=== PATIENT | female | born 1970 | race Caucasian/White ===

== ENCOUNTER 2019-02-23 11:08 | Emergency (ER) | payer BC, MEDICAID ==
[~2019-02-23] VITALS: Ht 175.3 cm; Wt 93.6 kg
[2019-02-23] MEDS ORDERED: BUSP5TAB81 PO (11:38)
[2019-02-23] MEDS ORDERED: ZEGE40CA3 PO (11:38)
[2019-02-23] MEDS ORDERED: WELLTAB40 PO (11:38)
[2019-02-23 13:32] LABS: BASO % 0.3 % (0.0-1.0); EOS # 0.1 10^3/uL (0.0-0.5); EOS % 1.3 % (0.0-3.0); HEMATOCRIT 43.8 % (36.0-47.0); HEMOGLOBIN 14.5 g/dl (12.0-15.5); LYMPH # 2.2 10^3/uL (1.5-5.0); LYMPH % 35.9 % (24.0-44.0); MEAN CORPUSCULAR HEMOGLOBIN 30.6 pg (27.0-33.0); MEAN CORPUSCULAR HGB CONC 33.1 g/dl (32.0-36.5); MEAN CORPUSCULAR VOLUME 92.4 fl (80.0-96.0); MONO # 0.5 10^3/uL (0.0-0.8); MONO % 8.1 % (0.0-5.0); NEUTROPHILS # 3.3 10^3/uL (1.5-8.5); NEUTROPHILS % 54.1 % (36.0-66.0); PLATELET COUNT, AUTOMATED 375 10^3/uL (150-450); RED BLOOD COUNT 4.74 10^6/uL (4.00-5.40); WHITE BLOOD COUNT 6.1 10^3/uL (4.0-10.0)
[2019-02-23 13:51] LABS: BLOOD UREA NITROGEN 12 MG/DL (7-18); CALCIUM LEVEL 9.4 MG/DL (8.5-10.1); CARBON DIOXIDE LEVEL 26 MEQ/L (21-32); CHLORIDE LEVEL 106 MEQ/L (98-107); CREATININE FOR GFR 0.62 MG/DL (0.55-1.30); GLOMERULAR FILTRATION RATE > 60.0 (>58); GLUCOSE, FASTING 88 MG/DL (70-100); POTASSIUM SERUM 3.7 MEQ/L (3.5-5.1); SODIUM LEVEL 138 MEQ/L (136-145)
--- NOTE | 2019-02-23 13:59 | REP ---
Four views bilateral humeri: 02/23/2019. Indication: Arm pain following trauma. Comparison: None. Findings: There is no evidence of acute fracture, subluxation or dislocation. The left antecubital IV insertion is noted. Impression: No acute fracture. Electronically Signed by Umang Nelson DO 02/23/2019 01:51 P
[2019-02-23 14:02] VITALS: BP 111/75
[2019-02-23] MEDS ORDERED: ISOVUE-370 76% 100ML VIAL (Q9967) As Ordered ONE (14:02)
--- NOTE | 2019-02-23 14:35 | REP ---
CT brain: 02/23/2019. Indication: Head trauma. Comparison: None. Technique: Unenhanced axial CT images of the brain were obtained from skull base to vertex. Findings: There is no acute intracranial hemorrhage, acute cortical infarction, mass effect, hydrocephalus or acute calvarial fracture. Impression: No acute intracranial process. Electronically Signed by Umang Nelson DO 02/23/2019 02:26 P
--- NOTE | 2019-02-23 14:41 | REP ---
CT cervical spine: 02/23/2019. Indication: Cervical spine trauma. Comparison: None. Technique: Axial images of the cervical spine were obtained with coronal and sagittal reconstructions provided. Findings: There is no acute fracture, subluxation or dislocation. Spondylitic sequelae are present most pronounced at C5/C6. Joint space narrowing is present throughout. Again most pronounced at C5/C6. There is mild reversal of the cervical lordosis. There is no evidence of hemorrhage or additional acute post traumatic sequelae within the spinal canal. Impression: No acute post traumatic osseous injuries of the cervical spine. Electronically Signed by Umang Nelson DO 02/23/2019 02:32 P
--- NOTE | 2019-02-23 14:50 | REP ---
CT neck soft tissues: 02/23/2019. Indication: Neck trauma. Choking. Comparison: None. Technique: Axial images of the neck soft tissues were obtained following the administration of 75 ml IV Isovue 370. Coronal and sagittal reconstructions were provided. Findings: The airway is patent. No acute vascular abnormalities are detected. The visualized lungs are clear without evidence of pneumothorax. No acute vascular injury is detected. The submandibular and parotid glands are unremarkable. There are small benign appearing thyroid cysts bilaterally. There is no evidence of hematoma within the soft tissues of the neck. Impression: No acute post traumatic soft tissue injuries of the neck. Electronically Signed by Umang Nelson DO 02/23/2019 02:41 P
[2019-02-23] MEDS ORDERED: IBUPROFEN 800 MG TAB PO ONE (15:15)
[2019-02-23] MEDS ORDERED: ONDANSETRON 4 MG ORAL DISINTEGRATING TAB (Q0162 PER 1MG) PO ONE (15:15)
== END 2019-02-23 15:29 | disposition home or self-care (01) ==
LOC: M ED 11:08
DX: S10.93XA Contusion of unspecified part of neck, initial encounter (principal); M54.2 Cervicalgia; M25.511 Pain in right shoulder; M25.512 Pain in left shoulder; Y04.8XXA Assault by other bodily force, initial encounter; Y92.099 Unspecified place in other non-institutional residence as the place of occurrence of the external cause; Y93.89 Activity, other specified; Y99.9 Unspecified external cause status; J45.909 Unspecified asthma, uncomplicated; F41.9 Anxiety disorder, unspecified; F32.9 Major depressive disorder, single episode, unspecified; F17.200 Nicotine dependence, unspecified, uncomplicated; Z79.899 Other long term (current) drug therapy; Z88.0 Allergy status to penicillin
CPT/HCPCS: 70450; 70491; 72125; 73060; 80048; 84702; 85025; 99283; Q0162; Q9967

== ENCOUNTER → 2020-07-08 | Outpatient (CLI) | payer BC ==
[~2020-07-08] MED LIST: BUSP5TAB81 PO; WELLTAB40 PO; ZEGE40CA3 PO
== END ==
LOC: M LABSMTC 10:21
PROVIDERS: ATTEND Anesthesiology
DX: Z01.812 Encounter for preprocedural laboratory examination (principal)

== ENCOUNTER 2020-07-13 07:26 | Day surgery (SDC) | payer BC ==
[~2020-07-13] VITALS: Ht 174 cm; Wt 92.9 kg
[~2020-07-13 07:26] MED LIST changes: +LIDOCAINE 2% 100MG/5ML SDV (FOR ANES.) As Ordered ONE; +LR 1,000 ML IV ONE; +MIDAZOLAM INJ 2MG/2ML VIAL (J2250 PER 1MG) As Ordered ONE; +ONDANSETRON 4MG/2ML VIAL As Ordered ONE; +PHENYLephrine 500MCG 5ML (100MCG/ML) SYRINGE As Ordered ONE; +ROCURONIUM BROMIDE 50 MG/5 ML VIAL As Ordered ONE; +SUGAMMADEX SODIUM 500 MG/5 ML VIAL (BRIDION) As Ordered ONE; +dexameTHASONE 4 MG/ML 1ML VIAL (J1100 PER 1MG) As Ordered ONE; +ePHEDrine SULFATE 25 MG/5 ML(5MG/ML) SYRINGE As Ordered ONE; +fentaNYL 100 MCG/2 ML INJECTION (J3010) As Ordered ONE; +propofoL 200 MG/20 ML VIAL As Ordered ONE
[2020-07-13] MEDS ORDERED: ACETAMINOPHEN 1000MG 100ML IV BTL (OFIRMEV) (J0131 PER 10MG) As Ordered ONE (09:20)
[2020-07-13] MEDS ORDERED: ONDANSETRON 4MG/2ML VIAL IV PRN (10:55)
[2020-07-13] MEDS ORDERED: oxyCODONE 5MG TAB PO PRN (10:55)
[2020-07-13] MEDS ORDERED: HYDROMORPHONE HCL 0.5 MG/ 0.5 ML SYRINGE (J1170 PER 1) IV PRN (10:55)
[2020-07-13] MEDS ORDERED: LR 1,000 ML IV SCH ×2 (10:55)
[2020-07-13] MEDS ORDERED: fentaNYL 100 MCG/2 ML INJECTION (J3010) IV PRN (10:55)
[2020-07-13 12:18] VITALS: BP 150/80
--- NOTE | 2020-07-13 13:12 | RO ---
OPERATIVE NOTE DATE OF OPERATION: 07/13/2020 PREOPERATIVE DIAGNOSIS/INDICATION FOR SURGERY: Increased genetic risk for ovarian and fallopian tube cancer. POSTOPERATIVE DIAGNOSIS: Increased genetic risk for ovarian and fallopian tube cancer. PROCEDURE: Laparoscopic bilateral salpingo-oophorectomy. She also incidentally had some Falope rings. We removed those, too. They were scarred into the tissue. SURGEON: Glenda Skinner MD LINSEED CAKE TRIMMER: None ANESTHESIA: General endotracheal anesthesia SPECIMENS: As already noted, both ovaries and tubes were removed. BRIEF DESCRIPTION OF PROCEDURE AND FINDINGS: Layne was brought to the operating room where sufficient general endotracheal anesthesia was induced and she was prepped, draped and positioned in the usual sterile fashion. A uterine manipulator was placed after the uterus was sounded to 8-1/2. The bladder was emptied but no Sandhu was placed. Attention was then turned to the abdomen where a transverse semilunar incision was made below the umbilicus. Sharp and blunt dissection were continued to the level of the rectus fascia which was transversely incised and there was a well developed posterior sheath as well and this was transversely incised. The fascia was secured with 0 Vicryl retention sutures. The peritoneum entered under direct visualization and CO2 insufflation was then begun using the Sonam cannula. After adequate insufflation, the peritoneal cavity was visualized. There were normal shiny peritoneal surfaces throughout. There were no ascites, exudate or excrescences and there was scarring from the previous Falope ring tubal ligation as noted in the pictures but no undue adhesions and the upper abdomen was normal in appearance as is pictured at the end of the case. With the patient placed in Trendelenburg, the uterus elevated with the uterine manipulator and also the patient leaned right side dependent so that bowel would roll way, we were able to isolate the infundibulopelvic ligament on the left, carefully cauterize and transect it using the Enseal dissectors through the operative port on the laparoscope. We also placed a right lower quadrant 5 mm port and used that for traction as needed. We dissected up through the mesentery of the ovary and tube, avoiding injury to the round because the patient is keeping her uterus and then we left the ovary attached on uterine side to turn our attention to the right ovary. We leveled the patient [id number] but kept her in Trendelenburg and then careful dissected the infundibulopelvic on the right as well. Both ureters were visible and peristalsing and well away from the field of dissection and the bowel, of course, was moving but with the manipulation of the Trend and the tilting as appropriate, we were able to keep it well away from the field of dissection as well. We continued the dissection on the right side and eventually freed that ovary, placing it in the anterior cul-de-sac. She had a little oozing on the uterine side of that dissection but with careful cautery, we were able to stop that ooze without disrupting the uterine vasculature. We did watch with the uterus not under pressure for a considerable length of time to confirm we had good hemostasis. We then continued the dissection on the left side, freeing that ovary and also placing it in the anterior cul-de-sac using the uterine manipulator to hold the uterus up. We had a good pocket so we could keep those secure while we switched out for the 5 mm scope on the right lower quadrant port and then placed the EndoCatch bag through the umbilicus and using two EndoCatch bags, we could take the ovaries individually with of course the attached fallopian tubes and the scarred in Falope rings. We went ahead and removed both ovaries and fallopian tube as planned and then replugged the umbilical wound so that we could once again insufflate and confirm good hemostasis on that uterus and at the other sites of dissection and another survey of the normal anatomy. The patient was then removed from Trend, the CO2 allowed to escape the abdomen and the deep wound at the fascia at the umbilicus closed with 0 Vicryl retention sutures and then the skin at both sites closed with 3-0 Vicryl in a subcuticular stitch with dry sterile dressings then applied. ESTIMATED BLOOD LOSS: For the procedure, about 3 mL. FLUID REPLACEMENT: Crystalloid. COMPLICATIONS: None. CONDITION AND DISPOSITION: Layne tolerated the procedure well and was recovering in the recovery room in good condition.
== END 2020-07-13 12:21 | disposition home or self-care (01) ==
LOC: M SDC 07:26
PROVIDERS: ATTEND Obstetrics & Gynecology
DX: Z15.02 Genetic susceptibility to malignant neoplasm of ovary (principal); N99.71 Accidental puncture and laceration of a genitourinary system organ or structure during a genitourinary system procedure; Z80.41 Family history of malignant neoplasm of ovary; F41.9 Anxiety disorder, unspecified; G43.909 Migraine, unspecified, not intractable, without status migrainosus; K21.9 Gastro-esophageal reflux disease without esophagitis; Z87.442 Personal history of urinary calculi; F43.10 Post-traumatic stress disorder, unspecified; Z88.0 Allergy status to penicillin
CPT/HCPCS: 58661; 88305; J0131; J1100; J2250; J2370; J2405; J3010

== ENCOUNTER → 2020-07-19 | Outpatient (REF) | payer BC ==
[~2020-07-19] MED LIST changes: -LIDOCAINE 2% 100MG/5ML SDV (FOR ANES.) As Ordered ONE; -LR 1,000 ML IV ONE; -MIDAZOLAM INJ 2MG/2ML VIAL (J2250 PER 1MG) As Ordered ONE; -ONDANSETRON 4MG/2ML VIAL As Ordered ONE; -PHENYLephrine 500MCG 5ML (100MCG/ML) SYRINGE As Ordered ONE; -ROCURONIUM BROMIDE 50 MG/5 ML VIAL As Ordered ONE; -SUGAMMADEX SODIUM 500 MG/5 ML VIAL (BRIDION) As Ordered ONE; -dexameTHASONE 4 MG/ML 1ML VIAL (J1100 PER 1MG) As Ordered ONE; -ePHEDrine SULFATE 25 MG/5 ML(5MG/ML) SYRINGE As Ordered ONE; -fentaNYL 100 MCG/2 ML INJECTION (J3010) As Ordered ONE; -propofoL 200 MG/20 ML VIAL As Ordered ONE
[2020-07-19 13:16] LABS: APPEARANCE, URINE CLEAR (CLEAR); BACTERIA, URINE AUTO 1+ (NEGATIVE); BILIRUBIN, URINE AUTO NEGATIVE (NEGATIVE); BLOOD, URINE BLOOD 1+ (NEGATIVE); COLOR, URINE YELLOW (YELLOW); GLUCOSE, URINE (UA) AUTO NEGATIVE (NEGATIVE); KETONE, URINE AUTO NEGATIVE (NEGATIVE); LEUKOCYTE ESTERASE, URINE AUTO NEGATIVE (NEGATIVE); NITRITE, URINE AUTO NEGATIVE (NEGATIVE); PROTEIN, URINE AUTO NEGATIVE (NEGATIVE); RBC, URINE AUTO 1 /HPF (0-3); SPECIFIC GRAVITY URINE AUTO 1.005 (1.002-1.035); SQUAMOUS EPITHELIAL CELL UR AU 0 /HPF (0-6); UROBILINOGEN, URINE AUTO 0.2 mg/dL (0.0-2.0); WBC, URINE AUTO 1 /HPF (0-3)
== END ==
LOC: M LAB REF 11:12
PROVIDERS: ATTEND Obstetrics & Gynecology
DX: N39.0 Urinary tract infection, site not specified (principal)

== ENCOUNTER → 2020-11-03 | Outpatient (REF) | payer BC ==
[2020-11-03 17:43] LABS: APPEARANCE, URINE CLEAR (CLEAR); COLOR, URINE YELLOW (YELLOW)
[2020-11-03 17:44] LABS: BACTERIA, URINE AUTO 1+ (NEGATIVE); BILIRUBIN, URINE AUTO NEGATIVE (NEGATIVE); BLOOD, URINE BLOOD NEGATIVE (NEGATIVE); GLUCOSE, URINE (UA) AUTO NEGATIVE (NEGATIVE); KETONE, URINE AUTO NEGATIVE (NEGATIVE); LEUKOCYTE ESTERASE, URINE AUTO 1+ (NEGATIVE); MUCUS, URINE SMALL (NEGATIVE); NITRITE, URINE AUTO NEGATIVE (NEGATIVE); PROTEIN, URINE AUTO NEGATIVE (NEGATIVE); RBC, URINE AUTO 1 /HPF (0-3); SPECIFIC GRAVITY URINE AUTO 1.012 (1.002-1.035); SQUAMOUS EPITHELIAL CELL UR AU 2 /HPF (0-6); UROBILINOGEN, URINE AUTO 0.2 mg/dL (0.0-2.0); WBC, URINE AUTO 17 /HPF (0-3)
== END ==
LOC: M LAB REF 16:24
PROVIDERS: ATTEND Obstetrics & Gynecology
DX: R39.15 Urgency of urination (principal)

== ENCOUNTER 2020-11-08 12:52 | Emergency (ER) | payer BC ==
[~2020-11-08] VITALS: Ht 175.3 cm; Wt 93.2 kg
[2020-11-08 15:59] LABS: BASO % 0.5 % (0.0-1.0); EOS # 0.2 10^3/uL (0.0-0.5); HEMOGLOBIN 13.9 g/dl (12.0-15.5); LYMPH # 2.8 10^3/uL (1.5-5.0); LYMPH % 48.9 % (24.0-44.0); MEAN CORPUSCULAR HEMOGLOBIN 30.5 pg (27.0-33.0); MEAN CORPUSCULAR HGB CONC 33.1 g/dl (32.0-36.5); MEAN CORPUSCULAR VOLUME 92.3 fl (80.0-96.0); MONO # 0.4 10^3/uL (0.0-0.8); MONO % 6.3 % (2.0-8.0); NEUTROPHILS # 2.3 10^3/uL (1.5-8.5); NEUTROPHILS % 40.1 % (36.0-66.0); PLATELET COUNT, AUTOMATED 281 10^3/uL (150-450); RED BLOOD COUNT 4.55 10^6/uL (4.00-5.40); WHITE BLOOD COUNT 5.8 10^3/uL (4.0-10.0)
[2020-11-08 16:36] LABS: ALBUMIN 3.6 GM/DL (3.2-5.2); ALT/SGPT 50 U/L (12-78); BILIRUBIN,DIRECT < 0.1 MG/DL (0.0-0.2); BILIRUBIN,TOTAL 0.2 MG/DL (0.2-1.0); LIPASE 151 U/L (73-393); TOTAL PROTEIN 6.6 GM/DL (6.4-8.2)
[2020-11-08 17:18] VITALS: BP 130/79
[2020-11-17] MEDS ORDERED: ONDA-83 PO (11:54)
[2020-11-17] MEDS ORDERED: ALPR1TAB3 PO (11:54)
[2020-11-17] MEDS ORDERED: SERT50TA29 PO (11:54)
== END 2020-11-08 17:15 | disposition home or self-care (01) ==
LOC: M ED 12:52
DX: N20.0 Calculus of kidney (principal); J45.909 Unspecified asthma, uncomplicated; F41.9 Anxiety disorder, unspecified; K21.9 Gastro-esophageal reflux disease without esophagitis; Z79.899 Other long term (current) drug therapy; Z88.0 Allergy status to penicillin; Z87.891 Personal history of nicotine dependence

== ENCOUNTER → 2020-11-13 | Outpatient (REF) | payer BC ==
[~2020-11-13] MED LIST changes: +ALPR1TAB3 PO; +FLOM0.4C39 PO; +ONDA-83 PO; +OXYC1TAB23 PO; +SERT50TA29 PO
[2020-11-13 18:05] LABS: AMORPHOUS SEDIMENT SMALL (NEGATIVE); APPEARANCE, URINE CLOUDY (CLEAR); BACTERIA, URINE AUTO NEGATIVE (NEGATIVE); BILIRUBIN, URINE AUTO NEGATIVE (NEGATIVE); BLOOD, URINE BLOOD NEGATIVE (NEGATIVE); COLOR, URINE YELLOW (YELLOW); GLUCOSE, URINE (UA) AUTO NEGATIVE (NEGATIVE); KETONE, URINE AUTO NEGATIVE (NEGATIVE); LEUKOCYTE ESTERASE, URINE AUTO NEGATIVE (NEGATIVE); NITRITE, URINE AUTO NEGATIVE (NEGATIVE); PROTEIN, URINE AUTO NEGATIVE (NEGATIVE); RBC, URINE AUTO 4 /HPF (0-3); SQUAMOUS EPITHELIAL CELL UR AU 0 /HPF (0-6); UROBILINOGEN, URINE AUTO 0.2 mg/dL (0.0-2.0); WBC, URINE AUTO 1 /HPF (0-3)
== END ==
LOC: M SMT 17:37
PROVIDERS: ATTEND Nurse Practitioner Family
DX: Z01.818 Encounter for other preprocedural examination (principal); N20.0 Calculus of kidney

== ENCOUNTER → 2020-11-22 | Outpatient (CLI) | payer BC | LOC: M LABSMTC 12:22 | PROVIDERS: ATTEND Anesthesiology | DX: Z01.818 Encounter for other preprocedural examination (principal); Z11.52 Encounter for screening for COVID-19 ==

== ENCOUNTER → 2020-11-22 | Outpatient (CLI) | payer BC ==
[2020-11-22 14:18] LABS: HEMATOCRIT 41.1 % (36.0-47.0); HEMOGLOBIN 13.5 g/dl (12.0-15.5); MEAN CORPUSCULAR HEMOGLOBIN 30.2 pg (27.0-33.0); MEAN CORPUSCULAR HGB CONC 32.8 g/dl (32.0-36.5); MEAN CORPUSCULAR VOLUME 91.9 fl (80.0-96.0); PLATELET COUNT, AUTOMATED 311 10^3/uL (150-450); RED BLOOD COUNT 4.47 10^6/uL (4.00-5.40); WHITE BLOOD COUNT 5.8 10^3/uL (4.0-10.0)
[2020-11-22 14:36] LABS: INR 0.86; PROTHROMBIN TIME 12.1 SECONDS (12.7-14.5)
[2020-11-22 14:37] LABS: BLOOD UREA NITROGEN 15 MG/DL (7-18); CALCIUM LEVEL 9.4 MG/DL (8.5-10.1); CARBON DIOXIDE LEVEL 29 MEQ/L (21-32); CHLORIDE LEVEL 106 MEQ/L (98-107); CREATININE FOR GFR 0.66 MG/DL (0.55-1.30); GLOMERULAR FILTRATION RATE > 60.0 (>58); GLUCOSE, FASTING 81 MG/DL (70-100); PARTIAL THROMBOPLASTIN TIME 28.3 SECONDS (25.9-37.0); POTASSIUM SERUM 4.5 MEQ/L (3.5-5.1); SODIUM LEVEL 141 MEQ/L (136-145)
== END ==
LOC: M LAB 13:23
PROVIDERS: ATTEND Nurse Practitioner Family
DX: N20.0 Calculus of kidney (principal)

== ENCOUNTER 2020-11-23 07:42 | Day surgery (SDC) | payer BC ==
[~2020-11-23] VITALS: Ht 175.3 cm; Wt 94.8 kg
[~2020-11-23 07:42] MED LIST changes: -FLOM0.4C39 PO; +LR 1,000 ML IV ONE; -OXYC1TAB23 PO; +TRIMETHOPRIM/SULFAMETHOXAZOLE 160 MG in D5W 250 ML IV ONE
[2020-11-23] MEDS ORDERED: MIDAZOLAM INJ 2MG/2ML VIAL (J2250 PER 1MG) As Ordered ONE (07:51)
[2020-11-23] MEDS ORDERED: fentaNYL 100 MCG/2 ML INJECTION (J3010) As Ordered ONE (07:52)
[2020-11-23] MEDS ORDERED: propofoL 500 MG/50 ML VIAL As Ordered ONE (07:53)
--- NOTE | 2020-11-23 08:20 | REP ---
INDICATION: KUB BEFORE SDC. COMPARISON: None. TECHNIQUE: KUB FINDINGS: 9 mm by 7 mm calculus lower pole left kidney. 7 mm by 4 mm calculus lower pole right kidney. 2 cm calcification left side of the pelvis. Normal bowel gas pattern. Spina bifida occulta S1 level. IMPRESSION: Bilateral renal calculi. Calcification left side of the pelvis possibly related to left ovary. Pelvic ultrasound would be helpful for further evaluation to exclude dermoid. <Electronically signed by Kevin Blackwell > 11/23/20 [id number]
[2020-11-23 08:39] LABS: INR 0.88; PROTHROMBIN TIME 12.3 SECONDS (12.7-14.5)
[2020-11-23 08:40] LABS: PARTIAL THROMBOPLASTIN TIME 28.9 SECONDS (25.9-37.0)
[2020-11-23] MEDS ORDERED: LIDOCAINE 2% 100MG/5ML SDV (FOR ANES.) As Ordered ONE (08:40)
[2020-11-23] MEDS ORDERED: ONDANSETRON 4MG/2ML VIAL As Ordered ONE (08:41)
[2020-11-23] MEDS ORDERED: dexameTHASONE 4 MG/ML 1ML VIAL (J1100 PER 1MG) As Ordered ONE (08:41)
[2020-11-23] MEDS ORDERED: ePHEDrine SULFATE 25 MG/5 ML(5MG/ML) SYRINGE As Ordered ONE (09:26)
[2020-11-23] MEDS ORDERED: FLOM0.4C39 PO (09:26)
[2020-11-23] MEDS ORDERED: OXYC1TAB23 PO (09:26)
--- NOTE | 2020-11-23 10:08 | RO ---
OPERATIVE NOTE DATE OF OPERATION: 11/23/2020 PREOPERATIVE DIAGNOSES: Left kidney stone. POSTOPERATIVE DIAGNOSIS: Left kidney stone. PROCEDURE: Left extracorporeal shock wave lithotripsy. SURGEON: Tyler Reese MD INTERNAL REVIEW AND AUDIT COMPLIANCE: None. ANESTHESIA: MAC. OPERATIVE INDICATIONS: This is a 50-year-old female who was found to have an obstructing approximately 7 mm left kidney stone on recent CT scan. She was brought to the operating room today for treatment. DESCRIPTION OF PROCEDURE: The patient was brought to the operating room and MAC anesthesia was administered. Prophylactic antibiotics were infused. She was then placed in supine position in preparation of left-sided extracorporeal shock wave lithotripsy. Fluoroscopy was utilized to monitor stone position and fragmentation throughout the procedure. Shock waves were then delivered to the left-sided kidney stone ungated. There were no arrhythmias. The stone appear to fragment well. After 2500 shocks the procedure was concluded. The patient was then awakened from anesthesia and transported to the recovery room in stable condition. ESTIMATED BLOOD LOSS: 0 mL COMPLICATIONS: None. SPECIMEN: None. PLAN: The patient will follow up in urology clinic in a few weeks with imaging prior to assess for residual stone burden. REINA
[2020-11-23 10:34] VITALS: BP 143/81
== END 2020-11-23 10:50 | disposition home or self-care (01) ==
LOC: M SDC 07:42
PROVIDERS: ATTEND Urology
DX: N20.0 Calculus of kidney (principal); K21.9 Gastro-esophageal reflux disease without esophagitis; K44.9 Diaphragmatic hernia without obstruction or gangrene; F43.10 Post-traumatic stress disorder, unspecified; F41.9 Anxiety disorder, unspecified; Z87.891 Personal history of nicotine dependence; Z98.51 Tubal ligation status; Z90.49 Acquired absence of other specified parts of digestive tract; Z88.0 Allergy status to penicillin; Z79.899 Other long term (current) drug therapy
CPT/HCPCS: 36415; 50590; 74018; 85610; 85730; J1100; J2250; J2405; J3010

== ENCOUNTER → 2020-12-13 | Outpatient (CLI) | payer BC ==
[~2020-12-13] MED LIST changes: +FLOM0.4C39 PO; -LR 1,000 ML IV ONE; +OXYC1TAB23 PO; -TRIMETHOPRIM/SULFAMETHOXAZOLE 160 MG in D5W 250 ML IV ONE
--- NOTE | 2020-12-14 07:34 | REP ---
INDICATION: CALCULUS OF KIDNEY COMPARISON: 11/23/2020 TECHNIQUE: Supine view of the abdomen and pelvis. FINDINGS: Evaluation is limited by overlying bowel gas. Small residual 2 mm left intrarenal calculus is suspected. The right kidney is completely obscured by bowel gas. Calcifications within the pelvis remains stable and likely represent phleboliths. IMPRESSION: Cannot exclude 2 mm residual left lower pole renal calculus. Evaluation of the right kidney is completely obscured. <Electronically signed by Cristiano Willoughby > 12/14/20 0705
== END ==
LOC: M LAB 16:53
PROVIDERS: ATTEND Urology
DX: N20.0 Calculus of kidney (principal)

== ENCOUNTER → 2020-12-14 | Outpatient (REF) | payer BC ==
[2020-12-14 14:03] LABS: AMORPHOUS SEDIMENT SMALL (NEGATIVE); APPEARANCE, URINE HAZY (CLEAR); BACTERIA, URINE AUTO 1+ (NEGATIVE); BILIRUBIN, URINE AUTO NEGATIVE (NEGATIVE); BLOOD, URINE BLOOD NEGATIVE (NEGATIVE); COLOR, URINE YELLOW (YELLOW); GLUCOSE, URINE (UA) AUTO NEGATIVE (NEGATIVE); KETONE, URINE AUTO NEGATIVE (NEGATIVE); LEUKOCYTE ESTERASE, URINE AUTO NEGATIVE (NEGATIVE); NITRITE, URINE AUTO NEGATIVE (NEGATIVE); PROTEIN, URINE AUTO NEGATIVE (NEGATIVE); RBC, URINE AUTO 1 /HPF (0-3); SPECIFIC GRAVITY URINE AUTO 1.011 (1.002-1.035); SQUAMOUS EPITHELIAL CELL UR AU 1 /HPF (0-6); UROBILINOGEN, URINE AUTO 0.2 mg/dL (0.0-2.0); WBC, URINE AUTO 4 /HPF (0-3)
[2020-12-21 12:08] LABS: CA Oxalate Dihy 30 % (.); Ca Ox Monohydrate 60 % (.); Size 2x2 mm (.)
== END ==
LOC: M SMT 13:04
PROVIDERS: ATTEND Nurse Practitioner Women's Health
DX: N20.0 Calculus of kidney (principal)

== ENCOUNTER → 2021-04-03 | Outpatient (REF) | payer BC ==
[2021-04-03 13:47] LABS: APPEARANCE, URINE CLEAR (CLEAR); BACTERIA, URINE AUTO NEGATIVE (NEGATIVE); BILIRUBIN, URINE AUTO NEGATIVE (NEGATIVE); BLOOD, URINE BLOOD NEGATIVE (NEGATIVE); COLOR, URINE YELLOW (YELLOW); GLUCOSE, URINE (UA) AUTO NEGATIVE (NEGATIVE); KETONE, URINE AUTO NEGATIVE (NEGATIVE); LEUKOCYTE ESTERASE, URINE AUTO TRACE (NEGATIVE); MUCUS, URINE SMALL (NEGATIVE); NITRITE, URINE AUTO NEGATIVE (NEGATIVE); PROTEIN, URINE AUTO NEGATIVE (NEGATIVE); RBC, URINE AUTO 1 /HPF (0-3); SPECIFIC GRAVITY URINE AUTO 1.017 (1.002-1.035); SQUAMOUS EPITHELIAL CELL UR AU 0 /HPF (0-6); UROBILINOGEN, URINE AUTO 0.2 mg/dL (0.0-2.0); WBC, URINE AUTO 16 /HPF (0-3)
== END ==
LOC: M SMT 12:45
PROVIDERS: ATTEND Nurse Practitioner Women's Health
DX: R30.0 Dysuria (principal)

== ENCOUNTER → 2021-04-23 | Outpatient (REF) | payer BC ==
[2021-04-23 18:15] LABS: APPEARANCE, URINE CLEAR (CLEAR); BACTERIA, URINE AUTO NEGATIVE (NEGATIVE); BILIRUBIN, URINE AUTO NEGATIVE (NEGATIVE); BLOOD, URINE BLOOD NEGATIVE (NEGATIVE); COLOR, URINE STRAW (YELLOW); GLUCOSE, URINE (UA) AUTO NEGATIVE (NEGATIVE); KETONE, URINE AUTO NEGATIVE (NEGATIVE); LEUKOCYTE ESTERASE, URINE AUTO NEGATIVE (NEGATIVE); NITRITE, URINE AUTO NEGATIVE (NEGATIVE); PROTEIN, URINE AUTO NEGATIVE (NEGATIVE); RBC, URINE AUTO 0 /HPF (0-3); SPECIFIC GRAVITY URINE AUTO 1.003 (1.002-1.035); SQUAMOUS EPITHELIAL CELL UR AU 0 /HPF (0-6); UROBILINOGEN, URINE AUTO 0.2 mg/dL (0.0-2.0); WBC, URINE AUTO 0 /HPF (0-3)
== END ==
LOC: M SMT 16:41
PROVIDERS: ATTEND Nurse Practitioner Women's Health
DX: R30.0 Dysuria (principal)

== ENCOUNTER → 2021-08-03 | Outpatient (REF) | payer BC ==
[2021-08-03 13:56] LABS: APPEARANCE, URINE CLEAR (CLEAR); BACTERIA, URINE AUTO NEGATIVE (NEGATIVE); BILIRUBIN, URINE AUTO NEGATIVE (NEGATIVE); BLOOD, URINE BLOOD NEGATIVE (NEGATIVE); COLOR, URINE STRAW (YELLOW); GLUCOSE, URINE (UA) AUTO NEGATIVE (NEGATIVE); KETONE, URINE AUTO NEGATIVE (NEGATIVE); LEUKOCYTE ESTERASE, URINE AUTO NEGATIVE (NEGATIVE); NITRITE, URINE AUTO NEGATIVE (NEGATIVE); PROTEIN, URINE AUTO NEGATIVE (NEGATIVE); RBC, URINE AUTO 0 /HPF (0-3); SPECIFIC GRAVITY URINE AUTO 1.003 (1.002-1.035); SQUAMOUS EPITHELIAL CELL UR AU 0 /HPF (0-6); UROBILINOGEN, URINE AUTO 0.2 mg/dL (0.0-2.0); WBC, URINE AUTO 1 /HPF (0-3)
== END ==
LOC: M SMT 13:15
PROVIDERS: ATTEND Nurse Practitioner Women's Health
DX: R30.0 Dysuria (principal)

== ENCOUNTER → 2021-08-14 | Outpatient (CLI) | payer BC | LOC: M RAD 09:16 | PROVIDERS: ATTEND Nurse Practitioner Women's Health | DX: N20.0 Calculus of kidney (principal) ==

== ENCOUNTER → 2021-12-04 | Outpatient (CLI) | payer BC ==
[2021-12-04 10:49] LABS: HEMATOCRIT 40.5 % (36.0-47.0); HEMOGLOBIN 13.9 g/dl (12.0-15.5); MEAN CORPUSCULAR HEMOGLOBIN 31.9 pg (27.0-33.0); MEAN CORPUSCULAR HGB CONC 34.3 g/dl (32.0-36.5); MEAN CORPUSCULAR VOLUME 92.9 fl (80.0-96.0); PLATELET COUNT, AUTOMATED 299 10^3/uL (150-450); RED BLOOD COUNT 4.36 10^6/uL (4.00-5.40); WHITE BLOOD COUNT 5.2 10^3/uL (4.0-10.0)
[2021-12-04 11:08] LABS: INR 0.86; PROTHROMBIN TIME 12.1 SECONDS (12.7-14.5)
[2021-12-04 11:09] LABS: PARTIAL THROMBOPLASTIN TIME 27.8 SECONDS (25.9-37.0)
[2021-12-04 11:27] LABS: ALBUMIN 3.6 GM/DL (3.2-5.2); ALT/SGPT 48 U/L (12-78); BILIRUBIN,TOTAL 0.3 MG/DL (0.2-1.0); BLOOD UREA NITROGEN 15 MG/DL (7-18); CALCIUM LEVEL 9.1 MG/DL (8.5-10.1); CARBON DIOXIDE LEVEL 29 MEQ/L (21-32); CHLORIDE LEVEL 109 MEQ/L (98-107); CREATININE FOR GFR 0.61 MG/DL (0.55-1.30); GLOMERULAR FILTRATION RATE > 60.0 (>58); GLUCOSE, FASTING 85 MG/DL (70-100); POTASSIUM SERUM 4.4 MEQ/L (3.5-5.1); SODIUM LEVEL 140 MEQ/L (136-145); TOTAL PROTEIN 6.7 GM/DL (6.4-8.2)
== END ==
LOC: M EKG 09:07
DX: R53.83 Other fatigue (principal)